=== PATIENT | female | born 1950 | race Caucasian/White ===

== ENCOUNTER 2016-08-15 19:47 | Observation (INO) | payer MEDICARE ==
[~2016-08-15] VITALS: Ht 172.7 cm; Wt 86.7 kg
[~2016-08-15 19:47] MED LIST: BECL8.7A6 IH; CITA10SO PO; DILT240C87 PO; HYDR12.5 PO; OXYB5TAB10 PO; TRAZ-118 PO
[2016-08-15 19:57] VITALS: BP 160/76; PULSE 89; RESP 32; O2SAT 88
[2016-08-15 20:00] VITALS: O2SAT 94
[2016-08-15] MEDS ORDERED: MeTOProlol 1 mg/mL 5 mL Inj IVPUSH STA (20:05)
--- NOTE | 2016-08-15 20:05 | ED.REPORT ---
HPI-Chest Pain 40 and Over Date of Service Aug 15, 2016 ED Provider: Corrine Larson MD The patient is a 66 year old female w/ a hx of HTN who presents to the ED via EMS accompanied by her due to chest pain onset 1.5 hrs ago. She was sitting, talking on the telephone, and began to feel intense chest pressure and SOB. She took 2 baby aspirin which did not help her symptoms. When medics arrived, she rated her pain at 20/10. The pain waxed and waned and radiated into her back. The pain was significantly reduced to a 5/10 with nitroglycerin. Associated symptoms include fatigue, chills and slight diaphoresis. Her fatigue has been worse recently. Nursing Notes Stated Complaint: CHEST PAIN Chief Complaint: Chest Pain Nursing Notes Reviewed: Yes Allergies: Coded Allergies: codeine (Verified Allergy, Severe, hives, "wired", itching, blotching, ) diphenhydramine (Verified Allergy, Severe, hives, itching, blotching, "wired", 08/15/16) meperidine (Verified Allergy, Severe, hallucinate, hives, itching, 08/15/16 ) morphine (Verified Allergy, Severe, hives, itching, "wired", hallucinations, 08/15/16) Scheduled Beclomethasone Dipropionate (Qvar) 8.7 Gm Aer.w.adap 40 MCG IH BID Citalopram Oral Soln (Citalopram Oral Soln) 10 Mg/5 Ml Solution 5 MG PO DAILY Diltiazem ER (Diltiazem ER) 240 Mg Capsule.er 240 MG PO DAILY Hydrochlorothiazide (Hydrochlorothiazide) 12.5 Mg Capsule 12.5 MG PO DAILY Oxybutynin Chloride (Oxybutynin Chloride) 5 Mg Tablet 5 MG PO DAILY Trazodone (Trazodone) 100 Mg Tablet 100 MG PO HS General Time Seen by MD: 20:05 Chief Complaint Chest pain Hx Obtained From: Patient Arrived By: Ambulance Sudden in Onset?: Yes Onset Occurred: 1 - 4 hours ago Symptom Duration: Since onset Location: : Chest left Quality: Heaviness, Painful, Pressure Radiation: : Back Migration/Movement: Reports: Chest to back Severity: Current: Pain level 3 out of 10 Severity: Maximum: Pain level 10 out of 10 Recent Healthcare: No recent doctor visit, No recent hospitalization Similar Sx Previous: No Past Medical History Past Medical History Reports: Hypertension Reports: Depression Past Surgical History Reports: Appendectomy, Cholecystectomy, Tonsillectomy Smoking History Former Smoker Social History Alcohol Use: "Social" Other Social History: Poor social support, , Local resident Ambulatory Status Independent Review of Systems Constitutional: Reports: Chills, Fatigue Respiratory: Reports: Shortness of breath Cardiovascular: Reports: Chest pain Skin: Reports Diaphoresis Complete sys rev & neg: except as marked. Physical Exam Initial Vital Signs Vital Signs (First) Date Time Temp Pulse Resp B/P Pulse Ox O2 Delivery O2 Flow Rate FiO2 08/15/16 19:57 37.0 89 32 160/76 88 Room Air 08/15/16 20:00 3 Initial VS: Reviewed, Vital signs abnormal Head / Eyes: Atraumatic, Normocephalic, PERRL ENT: Mucous membranes moist, Conjunctiva normal Back: No CVA tenderness Extremities: Vascular intact, Neuro intact, No swelling, No tenderness Skin: Warm, Dry Neurologic: Alert, Oriented Psychiatric: Mood/affect normal, Behavior normal General/Constitutional: Awake, Alert, Cooperative Rales / Rhonchi: Positive: Rales bilateral bases Cardiovascular: Heart rate NL, Regular rhythm, Heart sounds NL Abdomen: Atraumatic, Soft, Non-tender Interpretation & Diagnostics Lab Results Interpretation Result Diagram: 08/15/16200408/15/162004 Test 08/15/16 20:05 08/15/16 21:07 White Blood Count 9.0th/mm3 (3.8-10.1) Red Blood Count 5.03mil/mm3 (3.90-5.20) Hemoglobin 14.9g/dL (12.0-15.6) Hematocrit 46.6% (35.0-46.0) Mean Corpuscular Volume 92.6fL (81-100) Mean Corpuscular Hemoglobin 29.6pg (27.0-35.0) Mean Corpuscular Hemoglobin Concent 32.0% (32.0-37.0) Red Cell Distribution Width 15.3% (12.3-15.4) Platelet Count 181bil/L (150-400) Neutrophils (%) (Auto) 58.9% (40-74) Lymphocytes (%) (Auto) 31.8% (14-46) Monocytes (%) (Auto) 7.9% (4-12) Eosinophils (%) (Auto) 1.1% (0-5) Basophils (%) (Auto) 0.2% (0-3) Sodium Level 141mEq/L (134-144) Potassium Level 4.0mEq/L (3.5-5.2) Chloride Level 101mEq/L (97-108) Carbon Dioxide Level 25mmol/L (18-29) Blood Urea Nitrogen 14mg/dL (8-27) Creatinine 0.76mg/dL (0.57-1.00) Estimat Glomerular Filtration Rate 109mL/min (>59) Glucose Level 134mg/dL (60-99) Calcium Level 9.8mg/dL (8.5-10.1) Magnesium Level 1.7mg/dL (1.6-2.6) Total Bilirubin 0.2mg/dL (0.0-1.2) Aspartate Amino Transf (AST/SGOT) 19U/L (0-50) Alanine Aminotransferase (ALT/SGPT) 16U/L (0-32) Alkaline Phosphatase 121U/L (25-165) Troponin T < 0.010ug/L (0.0-0.011) Pro-B-Type Natriuretic Peptide 233.4pg/mL (0-301) Total Protein 7.0g/dL (6.4-8.4) Albumin 4.3g/dL (3.4-5.0) Hold Urine Received (Received) ECG Interpretation ECG Interpretation: no acute ST wave changes Time: 19:59 Interpreted by: ED physician Normal ECG Interpretation: Normal sinus rhythm (86), Normal axis X-Ray Chest Interpretation Chest Xray Interpretation: IMPRESSION: No acute cardiopulmonary disease process. Dictated by: Fauzia Oscar MD, PhD on 08/15/2016 at 20:17 Approved by: Fauzia Oscar MD, PhD on 08/15/2016 at 20:18 View: Portable Interpretation / Wet Read by: Interpret - Radiologist Re-Eval/Medical Decision Med Decision/Clinical Course The patient's story is very concerning for acute coronary syndrome. Initial troponin and EKG are negative. Her symptoms started only 2 hours ago and she will need to be ruled out. Additional differential diagnoses considered were pneumonia, aortic dissection, congestive heart failure, and pulmonary embolus. Time of Eval: 21:55 Re-Evaluation/Progress Note: Pt rechecked. Informed pt of need for admission. Pt understands and agrees with plan. All questions addressed. Consultation : Referral / Consult Name: Dajuan Petersen MD Call Returned at: 22:17 Injection Molder: Agrees with eval, Agrees with plan Note: Case discussed. Dr. Petersen accepts admit. Counseled Regarding: Diagnosis, Lab results, Need for admission Discharge & Departure Primary Impression: Chest pain Chest pain type: unspecified Qualified Code: R07.9 - Chest pain, unspecified Disposition: ADMITTED TO HOSPITAL Discharge Condition All VS Reviewed: Yes Condition: Stable Referrals: Jose Maria Claros MD (PCP) [employer] Attestation Portion of this note were transcribed by Beverly Orosco. I, Dr. Larson, personally performed the history, physical exam, and medical decision-making: I reviewed and confirmed the accuracy for the information in the transcribed note. Signed by: sahil Perez, 08/15/16 2100 copies to: Jose Maria Claros MD, Jena M MD Aug 15, 2016 20:05 Beverly Orosco Aug 15, 2016 20:17
[2016-08-15] MEDS ORDERED: Nitroglycerin 2% 1 Gm Ointment TOPICAL ONE (20:20)
--- NOTE | 2016-08-15 20:20 | DRSVH ---
PROCEDURE: X-RAY CHEST ONE VIEW, PORTABLE ([id number]) INDICATIONS: chest pain TECHNIQUE: One view of the chest was acquired. COMPARISON: [facility], , XR CHEST 2VW, 06/05/2015, 11:09. FINDINGS: Surgical changes and devices: Cholecystectomy clips Lungs and pleura: No pleural effusions or pneumothorax. Lungs are clear of acute opacities. Right b asilar parenchymal scarring stable compared to prior examinations. Mediastinum: Mediastinal contours appear normal. Heart size is normal. Bones and chest wall: No suspicious bony lesions. Overlying soft tissues appear unremarkable. IMPRESSION: No acute cardiopulmonary disease process. Dictated by: Fauzia Oscar MD, PhD on 08/15/2016 at 20:17 Approved by: Fauzia Oscar MD, PhD on 08/15/2016 at 20:18
[2016-08-15] MEDS ORDERED: HYDROmorphone 0.5 mg/0.5 mL iSecure Syringe IVPUSH ONE ×2 (20:35→22:50)
[2016-08-15] MEDS ORDERED: LidocaineVisc 2%:Antacid 1:1 10 mL Syringe PO ONE (20:35)
[2016-08-15 20:37] LABS: BASOPHILS % (AUTO) 0.2 % (0-3); EOSINOPHILS % (AUTO) 1.1 % (0-5); MONOCYTES % (AUTO) 7.9 % (4-12); Mean Corpuscular Hemoglobin 29.6 pg (27.0-35.0); Mean Corpuscular Volume 92.6 fL (81-100); NEUTROPHILS % (AUTO) 58.9 % (40-74); Platelet Count 181 bil/L (150-400)
[2016-08-15 20:59] LABS: TROPONIN T < 0.010 ug/L (0.0-0.011)
[2016-08-15 21:00] LABS: Magnesium 1.7 mg/dL (1.6-2.6)
[2016-08-15] MEDS ORDERED: Ondansetron 2 mg/mL 2 mL Inj IVPUSH ONE (21:45)
[2016-08-15 22:03] VITALS: BP 150/61; PULSE 58; RESP 21; O2SAT 97
[2016-08-15] MEDS ORDERED: Atropine 1 mg/10 mL (Code) Syringe IVPUSH PRN (22:30)
[2016-08-15] MEDS ORDERED: Senna-Docusate 8.6-50 mg Tablet PO PRN (22:30)
[2016-08-15] MEDS ORDERED: Polyethylene Glycol (PEG) 17 Gm Powder PO PRN (22:30)
[2016-08-15] MEDS ORDERED: Alum-Mag Hydrox-Simeth 30 mL Suspension PO PRN (22:30)
[2016-08-15] MEDS ORDERED: Ondansetron 2 mg/mL 2 mL Inj IVPUSH PRN (22:30)
[2016-08-15 23:28] VITALS: BP 135/70; PULSE 56; RESP 18; O2SAT 96
[2016-08-16] VITALS (10 sets, daily range): BP systolic 92–152; BP diastolic 54–73; PULSE 55–71; RESP 18; O2SAT 90–95
--- NOTE | 2016-08-16 | PCM.HPMED ---
Subjective Date of Service Aug 15, 2016 Primary Provider: Admitting Physician: Dajuan Petersen MD Primary Care Physician: Jose Maria Claros MD Attending Physician: Dajuan Petersen MD Admit Status: From the Emergency Department Chief Complaint: Substernal chest pain History of Present Illness: Mrs. Melanie Reid is a 66 year old woman with history of atrial fibrillation, likely paroxysmal, not on rate control or anticoagulation, and history of severe PNA requiring intubation, that presented to [facility] via EMS for an acute onset substernal, severe, chest pressure with radiation to her back. She was admitted for evaluation for acute coronary syndrome. Hospital day one. Mrs. Reid states that her pressure began at approx 1830 this evening at dinner, no inciting events recalled. No history of similar. She initially rated the pain at "20/10," seem to have worsened on its own without any triggers, and she reports she took two low-dose aspirin which did not provide any relief. Associated symptoms include nausea, and the radiation of pain to her mid back. Much to her dismay, her neighbor called EMS, and brought her into the hospital. At time of the event, and currently, she denies any fever, chills, vomiting, abdominal pain, paresthesias in extremities, jaw pain, shortness of breath. She does note a day prior to the onset of symptoms, she states she felt slightly unwell, with subjective fever and chills. She notes a recent development of headache since application of the nitroglycerin. She denies any history of similar, and no history of any chest pain or cardiac diagnoses that have required ongoing treatment. She does note that she was hospitalized for pneumonia last year at [facility] in [place], and there, she was found to have atrial fibrillation. She states that she no longer has atrial fibrillation , and does not take any medications, including rate control or anticoagulants. She states that she felt well until this evening at onset of symptoms, and is currently quite irritated that she has to be in the hospital. In the ED room, she stated her pain was beginning to recur, rated approximately 3/10. She noted that her symptoms improved with sitting upright and leaning forward. Prior to arrival in the ED, blood pressure was reported to be approximately 220 systolic. In the ED, temperature 37.0, pulse 89, respiratory rate 32, blood pressure 160/76, pulse ox 88% on room air; follow-up vitals approximately 2 hours later revealed pulse of 58, respiratory rate 21, blood pressure 150/61, 97 % on nasal cannula 3 L. Initial lab work showed WBC 9.0, hemoglobin 14.9, platelets 181; creatinine 0.76, glucose 134, troponin less than 0.010, pro BNP 233; chest x-ray did not reveal any acute cardiopulmonary disease processes, including effusions or pneumothorax. EKG revealed normal sinus rhythm, without any acute ST/T changes. She was [place] [facility]. Review of Systems: Complete ROS obtained; pertinent positives and negatives as noted in HPI Allergies Coded Allergies: codeine (Verified Allergy, Severe, hives, "wired", itching, blotching, ) diphenhydramine (Verified Allergy, Severe, hives, itching, blotching, "wired", 08/15/16) meperidine (Verified Allergy, Severe, hallucinate, hives, itching, 08/15/16 ) morphine (Verified Allergy, Severe, hives, itching, "wired", hallucinations, 08/15/16) Home Medications Patient reports: Trazodone nightly Oxybutynin daily Denies any cardiac medications ED documentation: Beclomethasone Dipropionate (Qvar) 8.7 Gm Aer.w.adap 40 MCG IH BID Citalopram Oral Soln (Citalopram Oral Soln) 10 Mg/5 Ml Solution 5 MG PO DAILY Diltiazem ER (Diltiazem ER) 240 Mg Capsule.er 240 MG PO DAILY Hydrochlorothiazide (Hydrochlorothiazide) 12.5 Mg Capsule 12.5 MG PO DAILY Oxybutynin Chloride (Oxybutynin Chloride) 5 Mg Tablet 5 MG PO DAILY Trazodone (Trazodone) 100 Mg Tablet 100 MG PO HS PMH Atrial fibrillation, paroxysmal, no anticoagulation; patient reports she converted into NSR PNA s/p intubation Non-Hodgkin's lymphoma stage I; in remission Insomnia secondary to racing thoughts Henley's esophagus Diverticulosis Anxiety/depression Hypertension PCP: [facility] Surgical History Appy Cholecystectomy Tonsillectomy EGD/Colonoscopy 2013 Family History Denies any family h/o early cardiac or disease; does report parents had CAD, but did not experience complications or OK until elderly ages Social History Occupation: retired; fmr endo RN at [employer] Hx Alcohol Use: Yes (twice a year) Hx Substance Use: No Smoking Status: Current Every Day Smoker (patient not straightforward when responding to this question; but appears to smoke daily, but now "former" secondary to hospitalization), Former Smoker (Does report ongoing use) Living Arrangement: with Family ([employer]; local) Exam Vital Signs Vital Sign - Last Date Time Temp Pulse Resp B/P Pulse Ox O2 Delivery O2 Flow Rate FiO2 08/15/16 22:03 58 21 150/61 97 Nasal Cannula 3 08/15/16 19:57 37.0 Exam General: Alert oriented 3; no acute distress but notably irritated Neck: Full range of motion chin to chest without pain HEENT: Atraumatic, EOMI, sclera anicteric, mucous membranes moist Cardiac: Regular rate and rhythm, rate approximately 60 at time of exam, no murmurs appreciated Respiratory: Adequate airflow all golden, bibasilar crackles appreciated Abdomen: Soft, nontender, nondistended Chest: Pain not reproducible with palpation; no obvious trauma noted of chest or back MSK: Ability to move for the 4 extremities against gravity Extremities: No edema appreciated in bilateral upper or lower extremities Skin: Warm and dry Neuro: Cranial nerves II through XII grossly intact, facial expression symmetric , speech without slurring Psych: Appropriate responses to questioning; notably irritated at time of examination Lab and Diagnostics Result Diagram: 08/15/16200408/15/162004 Assessment & Plan Mrs. Melanie Reid is a 66 year old woman with history of atrial fibrillation, likely paroxysmal, not on rate control or anticoagulation, and history of severe PNA requiring intubation, that presented to [facility] via EMS for an acute onset substernal, severe, chest pressure with radiation to her back. She was admitted for evaluation for acute coronary syndrome. Hospital day one. Chest pain, acute, present on admission. Active - On admit: Troponin negative, EKG did not reveal any acute ST/T changes - DDx: Pancreatitis, pericarditis, OK, costochondritis, PTX, GERD, angina - Continue O2, pain relief, nitroglycerin, aspirin - EKG prn chest pain - Dilaudid 0.5 mg IV prn chest pain; patient has allergy to morphine - Trend troponin - Echo - Stress test, treadmill - NPO 4 hours prior to study - Based on results: Initiation of ASA, beta annette, ACEi, statin therapies - AM labs: cbc, bmp, thyroid, Mg PO4; lipase added to admit labs Insomnia, chronic. Presumed stable - Continue home trazodone Bladder spasms, chronic. Presumed stable - Continue home oxybutynin History of atrial fibrillation, likely paroxysmal, chronic. Presumed stable - Patient reports history, not on rate control or anticoagulation - CHADS VASc at time of admission: 1; +HTN; low risk PRN: Bowel/fever/pain/nausea DVT: Hep q8 Diet: Heart healthy; exc NPO x4h prior to cardiac studies GI: Not indicated Code: FULL CODE Patient status: Due to severity of presenting symptoms, likely course of events , and expected course of care, anticipated length of stay is less than 2 midnights Pain Evaluation: Adequate Pain Control GI Prophylaxis: Not indicated VTE Prophylaxis: Sub-Q Heparin (Unfractionated) Resuscitation Status: CPR: Attempt Resuscitation Attending Statement The patient was seen and examined together with Dr. Henley on 08/15 and I agree with the history, exam and plan as outlined in the note above. Jannet Henley DO Aug 15, 2016 23:09 Dajuan Petersen MD Aug 16, 2016 02:00
--- NOTE | 2016-08-16 00:05 | NUR ---
Admission Note Pt [place] [facility] on [place] at 2325, alert and orientedx3, states chest pain or pressure and nausea resolved, c/o mild headache, denies SOB/cough/fever/chills/dizziness,vertigo. BP 135/70 HR 56, RR18, SPO2 97% on O2 3l per nc. Crackles bilateral 2/3 down lung field anteriorly ,posteriorly and laterally. Tele applied, SR 56 per wind tunnel technician, distant S1 S2. Abdomen soft,nontender, BT slightly hypoactive, no edema bilateral legs. Pt informed NPO after MN,no caffeine for stress test today 08/16/2016. Call light oriented to pt, care ongoing.
[2016-08-16 00:12] LABS: APPEARANCE,URINE CLEAR (CLEAR,HAZY); COLOR,URINE YELLOW (YELLOW); OCCULT BLOOD,URINE NEGATIVE (NEGATIVE); UROBILINOGEN,URINE NORMAL (NORMAL)
[2016-08-16] MEDS: Heparin 5,000 Unit/mL Inj SUBQ SCH ×2 (00:18→08:21)
[2016-08-16] MEDS: 0.9% Sodium Chloride 1,000 ML IV SCH ×2 (00:18→10:56)
[2016-08-16] MEDS: Sodium Chloride LOK Flush 10 mL Syringe IVFLUSH SCH ×3 (00:30→16:30)
[2016-08-16 02:34] LABS: Mean Corpuscular Hemoglobin 29.9 pg (27.0-35.0); Mean Corpuscular Volume 93.5 fL (81-100)
[2016-08-16 03:06] LABS: Magnesium 1.8 mg/dL (1.6-2.6); Phosphorus 4.9 mg/dL (2.5-4.9)
[2016-08-16] MEDS: HYDROmorphone 0.5 mg/0.5 mL iSecure Syringe IVPUSH PRN ×2 (03:21→08:25)
[2016-08-16] MEDS ORDERED: LORazepam 1 mg Tablet PO PRN (08:35)
--- NOTE | 2016-08-16 09:10 | NUR ---
Off unit Pt off unit to MIBI stress test, Rover notified. Addendum: 08/16/16 at 1226 by NAKUL BOOTH RN Pt back on unit at 1200, Rover notified.
--- NOTE | 2016-08-16 12:48 | NUR ---
Case Management: SLOAN and Medicare D paperwork delivered and explained to pt. @ 6603. Original placed in chart. Copy left at bedside. Colleen John RN
--- NOTE | 2016-08-16 14:42 | NUR ---
Social Work-initial assessment/ Readiness for Discharge: Data:See initial assessment. Pt is a 66 y/o female who was admitted on 08/15/16 for chest pain per H&P. Per morning rounds pt will possibly discharge home later this evening pending results of stress test. Pt's insurance is [employer] and [employer] and PCP is Jose Maria Claros MD. EMR Reviewed. Pt's readmission score is not available. SW met with pt at bedside to discuss discharge planning, SW role explained. Pt is alert and oriented x3. Pt resides at home with in a single level home with two steps to enter where pt remains independent with basic ADLs. Pt uses no DME at baseline and drives POV. Pt has no HH or SNF history. Pt states she has completed DPOA/ advanced directive and SW requested a copy for the hospital. Pt has no long term care administrator care or VA benefits. Pt's to provide transport home at discharge. SW provided phone number and plan on white board in room. No needs assessed. SW will continue to follow. Assessment:Pt who resides at home with and is independent at baseline. Plan:Pt to likely discharge home via POV when medically stable with no needs. SW will continue to follow. KUSH Robertson Addendum: 08/16/16 at 1448 by CRISTHIAN SPRINGER SS Amended: Links added.
--- NOTE | 2016-08-16 14:43 | DRSVH ---
PROCEDURE: 1 DAY PHARMACOLOGICAL STRESS TEST Rest and pharmacological stress myocardial perfusion SPECT with gated imaging and ejection fraction RADIOPHARMACEUTICAL: 8.9 mCi Tc-99m tetrafosmin IV at rest and 24.8 Tc-99m tetrafosmin IV at peak eff ect of pharmacological stress. A [id number] was performed. INDICATIONS: 66 year-old female with history of atrial fibrillation and family history of coronary ar gabby disease presenting for evaluation of chest pain. TECHNIQUE: Radiopharmaceutical was injected at peak stress test, and also at rest. SPECT images wer e obtained. SPECT myocardial perfusion images were displayed in short axis, horizontal long axis, an d vertical long axis views. Gated images were reviewed using [employer] software. COMPARISON: None. CARDIAC STRESS: An exercise stress test utilizing standard Tr protocol was initiated. Target heart rate was not a chieved due to cramping in both legs. A pharmacologic stress test was performed under the supervisio n of an attending staff, using an infusion of Lexiscan. Hemodynamic data: There is normal blood pressure and heart rate response to pharmacologic stress. Symptoms: The patient denied anginal chest pain. Patient reported nausea following Lexiscan injecti on. Aminophylline: 100 mg IV EKG: No diagnostic changes of ischemia. Occasional PACs following Lexiscan injection. FINDINGS: Raw data: There is good myocardial uptake of radiotracer. No significant motion artifacts. Left ventricle function: Gated images demonstrate normal left ventricular wall thickening. No segme ntal wall motion abnormalities. Left ventricle resting end diastolic volume is 75 mL. Left ventricl e stress ejection fraction is 73%; normal range is above 45%. Myocardial perfusion: There is normal distribution of activity in the right and left ventricular italia cardium. No fixed or reversible perfusion defects. IMPRESSION: 1. Normal myocardial perfusion images without evidence of ischemia or infarct. 2. Normal left ventricular ejection fraction without segmental wall motion abnormalities. 3. No diagnostic EKG changes of ischemia following pharmacologic stress. Patient was unable to achi frances target heart rate during exercise stress due to leg cramping. PQRS ATTESTATIONS: Measure 322 - Is this imaging test primarily performed on a low-risk surgery patient for preoperative evaluation within 30 days preceding their low-risk non-cardiac surgery? Low-risk surgery is defined as cardiac or myocardial infarction less than 1%, including (but not limited to) endoscopic pr ocedures, superficial procedures, cataract surgery, and excisional breast surgery: Answer: No Measure 323 - Is this imaging test performed primarily for the monitoring of an asymptomatic patient who had percutaneous coronary intervention on the visit date or within 2 years of the visit date? An swer: No Measure 324 - Is this imaging test performed primarily for the initial detection and risk assessment on an asymptomatic, low coronary heart disease patient? Low CHD risk definition = clinicians should consider the maximum number of available patient factors used to estimate risk based on [place] (A TP III criteria), typically age, gender, diabetes, smoking status, and use of blood pressure medicati on, and integrate age appropriate estimates for missing elements, such as LDL or standard blood press ure. Answer: No Dictated by: Tarik Atkinson M.D. on 08/16/2016 at 14:35 Approved by: Tarik Atkinson M.D. on 08/16/2016 at 14:42
--- NOTE | 2016-08-16 16:46 | DRSVH ---
[facility] [address] [place] [address] Echocardiogram Report Name: DEMARCUS FRASER JStudy Date: 08/16/2016 Height: 68 in Hospital Exam Location: [facility] Weight: 191 lb Gender: Female BSA: 2.0 m2 : 1950 Age: 66 yrs BP: 112/66 mmHg Reason For Study: CHEST PAIN Ordering Physician: Performed By: Kasey Lim Referring Physician: Jose Maria Claros Interpretation Summary The ejection fraction is estimated to be 60-65%. There is no significant valvular heart disease. Procedure: A two-dimensional transthoracic echocardiogram with color flow and Doppler was performed. The study quality was technically adequate. There is no prior echocardiogram noted for this patient. The patient was in normal sinus rhythm during the exam. Left Ventricle: The left ventricle is normal in size, wall thickness, and systolic function without any focal wall motion abnormalities. The ejection fraction is estimated to be 60-65%. Spectral Doppler of the mitral valve is reversed, with an E/A wave ratio < 1.0. Right Ventricle: The right ventricle is normal in size and function. Atria: Both atria are normal in size. There is no Doppler evidence for an atrial septal defect. Mitral Valve: The mitral valve leaflets appear mildly thickened, but open well. There is no mitral regurgitation noted. Aortic Valve: The aortic valve is trileaflet. There is mild aortic valve sclerosis. The aortic valve opens well. No aortic regurgitation is present. Tricuspid Valve: The tricuspid valve leaflets are thin and pliable. There is mild to moderate tricuspid regurgitation. The right ventricular systolic pressure is estimated at 27 mmHg assuming a right atrial pressure of 3 mm Hg. Pulmonic Valve: The pulmonic valve is not well seen, but is grossly normal. There is a trace or physiologic amount of pulmonic regurgitation. Great Vessels: The aortic root is normal size. The dimensions of the ascending aorta are normal. The pulmonary artery is normal size. The IVC is of normal diameter and collapses greater than 50% with a sniff. This suggests a low right atrial pressure of 3 mm Hg. Pericardium/ Pleura There is no pericardial effusion. There is no pleural effusion. MMode/2D Measurements & Calculations LVIDd: 4.8 cm RA long axis LVOT diam: 2.0 cm LVIDs: 3.0 cm LA A2 area: 17.4 cm AoV Opening FS: 36.8 % LA A4 area: 22.1 cm RA area EPSS: 0.54 cm LA length (vol) Ao root diam IVSd: 0.97 cm : 19.4 cm LVPWd: 1.1 cm LA vol: 59.7 ml RA vol asc Aorta Diam LA vol index : 62.0 ml RA Ao Arch Diam (Prox : 30.9 mm2 Trans): 2.8 cm IVC diam: 1.4 cm LV gardner. diameter/BSA LV sys. diameter/BSA RVD2 (mid) (cm/m^2): 2.4 (cm/m^2): 1.5 : 3.2 cm Doppler Measurements & Calculations Ao V2 max MV E max rahul MV E/A: 0.80 TR max rahul : 152.2 cm/sec : 98.2 cm/sec Med Peak E' Rahul : 243.2 cm/sec Ao max P.3 mmHg MV A max rahul TR max PG Ao mean P.7 mmHg : 122.0 cm/sec E/E' med: 14.0 : 23.7 mmHg LVOT Max Rahul MV P1/2t: 74.7 msec Lat Peak E' Rahul PA V2 max : 103.7 cm/sec : 98.2 cm/sec E/E' lat: 9.3 PA mean PG MAMADOU(I,D): 2.3 cm E/e' average sev ratio: 0.70 PA Accel Time Pulm A Revs Dur : 0.12 sec MV A dur : 0.14 sec MV P1/2t max rahul Ao V2 mean LV V1 max PG PA V2 mean : 104.2 cm/sec : 67.0 cm/sec Ao V2 VTI: 33.1 cm LV V1 VTI MVA(P1/2t): 2.9 cm2 : 23.3 cm MAMADOU(V,D): 2.2 cm2 MAMADOU indexed to BSA Pulm A Revs Dur - MV A (cm^2/m^2): 1.2 Dur: -0.01 msec Electronically signed by: Dung Ashley on Reading Physician:08/16/2016 04:46 PM
[2016-08-16] MEDS ORDERED: OMEP10CA4 PO (17:26)
--- NOTE | 2016-08-16 17:26 | PCM.DIMED ---
Discharge Instructions Date of Service Aug 16, 2016 Dates of Hospitalization Aug 15, 2016 at 22:44 Discharge Diagnosis Discharge Diagnosis # Chest pain, acute, present on admission. RESOLVED ,ACS RULLED OUT # Insomnia, chronic. Presumed stable # Bladder spasms, chronic. Presumed stable # History of atrial fibrillation, likely paroxysmal, chronic. Presumed stable # sinus bradycardia ,asymptomatic Test Results Unremarkable echocardiogram Negative stress test Diet Low fat, Low Sodium Activity Limited until seen by PCP Call your provider Fever or Chills, Shortness of breath, Bleeding, Chest pain, Vomitting, Excessive diarrhea, Weakness (unilateral) Patient Instructions You were hospitalized to due to chest pain. Workup is negative for heart attack. Pain most likely due to acid reflux. Please take omeprazole as prescribed. Please follow-up with PCP in 1 week. Follow-up Provider: Jose Maria Claros MD Follow-up with PCP in: 1 week Armond Barnett MD Aug 16, 2016 17:26
--- NOTE | 2016-08-16 18:42 | NUR ---
DISCHARGE Pt discharged at 1800, amb off unit accompanied by and AREA SUPERVISOR. Vital signs stable, A&O, denies any pain and in no apparent distress. IV dc'd intact, all belongings returned. All instructions for diet, activity, medications, prescriptions and follow up reviewed with pt who reports understanding.
--- NOTE | 2016-08-16 20:07 | PCM.DC.MED ---
Discharge Summary Date of Service Aug 16, 2016 Dates of Hospitalization Date of Hospital Admission Aug 15, 2016 at 22:44 Date of Discharge: Aug 16, 2016 Providers: Admitting Physician: Dajuan Petersen MD Primary Care Physician: Jose Maria Claros MD Attending Physician: Dajuan Petersen MD Diagnosis at Time of Discharge Diagnosis at Time of Discharge # Chest pain, acute, present on admission. RESOLVED ,ACS RULLED OUT # Insomnia, chronic. Presumed stable # Bladder spasms, chronic. Presumed stable # History of atrial fibrillation, likely paroxysmal, chronic. Presumed stable # sinus bradycardia ,asymptomatic Procedures Cardiac Echo Impression Interpretation Summary The ejection fraction is estimated to be 60-65%. There is no significant valvular heart disease. Other Diagnostics stress test PROCEDURE: 1 DAY PHARMACOLOGICAL STRESS TEST FINDINGS: Raw data: There is good myocardial uptake of radiotracer. No significant motion artifacts. Left ventricle function: Gated images demonstrate normal left ventricular wall thickening. No segmental wall motion abnormalities. Left ventricle resting end diastolic volume is 75 mL. Left ventricle stress ejection fraction is 73%; normal range is above 45%. Myocardial perfusion: There is normal distribution of activity in the right and left ventricular myocardium. No fixed or reversible perfusion defects. IMPRESSION: 1. Normal myocardial perfusion images without evidence of ischemia or infarct. 2. Normal left ventricular ejection fraction without segmental wall motion abnormalities. 3. No diagnostic EKG changes of ischemia following pharmacologic stress. Patient was unable to achieve target heart rate during exercise stress due to leg cramping. Brief History Mrs. Melanie Reid is a 66 year old woman with history of atrial fibrillation, likely paroxysmal, not on rate control or anticoagulation, and history of severe PNA requiring intubation, that presented to [facility] via EMS for an acute onset substernal, severe, chest pressure with radiation to her back. She was admitted for evaluation for acute coronary syndrome. Hospital day one. Mrs. Reid states that her pressure began at approx 1830 this evening at dinner, no inciting events recalled. No history of similar. She initially rated the pain at "20/10," seem to have worsened on its own without any triggers, and she reports she took two low-dose aspirin which did not provide any relief. Associated symptoms include nausea, and the radiation of pain to her mid back. Much to her dismay, her neighbor called EMS, and brought her into the hospital. At time of the event, and currently, she denies any fever, chills, vomiting, abdominal pain, paresthesias in extremities, jaw pain, shortness of breath. She does note a day prior to the onset of symptoms, she states she felt slightly unwell, with subjective fever and chills. She notes a recent development of headache since application of the nitroglycerin. She denies any history of similar, and no history of any chest pain or cardiac diagnoses that have required ongoing treatment. She does note that she was hospitalized for pneumonia last year at [facility] in [place], and there, she was found to have atrial fibrillation. She states that she no longer has atrial fibrillation , and does not take any medications, including rate control or anticoagulants. She states that she felt well until this evening at onset of symptoms, and is currently quite irritated that she has to be in the hospital. In the ED room, she stated her pain was beginning to recur, rated approximately 3/10. She noted that her symptoms improved with sitting upright and leaning forward. Prior to arrival in the ED, blood pressure was reported to be approximately 220 systolic. In the ED, temperature 37.0, pulse 89, respiratory rate 32, blood pressure 160/76, pulse ox 88% on room air; follow-up vitals approximately 2 hours later revealed pulse of 58, respiratory rate 21, blood pressure 150/61, 97 % on nasal cannula 3 L. Initial lab work showed WBC 9.0, hemoglobin 14.9, platelets 181; creatinine 0.76, glucose 134, troponin less than 0.010, pro BNP 233; chest x-ray did not reveal any acute cardiopulmonary disease processes, including effusions or pneumothorax. EKG revealed normal sinus rhythm, without any acute ST/T changes. She was transferred to [facility] in stable condition. Hospital Course Mrs. Melanie Reid is a 66 year old woman with history of atrial fibrillation, likely paroxysmal, not on rate control or anticoagulation, and history of severe PNA requiring intubation, that presented to [facility] via EMS for an acute onset substernal, severe, chest pressure with radiation to her back. She was admitted for evaluation for acute coronary syndrome. Hospital day one. # Chest pain ACS ruled out, acute, present on admission. resolved - On admit: Troponin negative, EKG did not reveal any acute ST/T changes - likely due to GERD ,pericarditis unlikely given ESR 6, discharged on omeperazole po bid - Continue O2, pain relief, nitroglycerin, aspirin - Echo unremarkable - Stress test negative -d-dimer borderline elevated # Asymptomatic sinus bradycardia -HR in 50's,patient states her HR ranges 40-50's and never have any symptoms like syncope/presyncope -TSH 2.5 # Insomnia, chronic. Presumed stable - Continue home trazodone # Bladder spasms, chronic. Presumed stable - Continue home oxybutynin # History of atrial fibrillation, likely paroxysmal, chronic. Presumed stable - Patient reports history, not on rate control or anticoagulation - CHADS VASc at time of admission: 1; +HTN; low risk -advised to follow up with PCp and decide on AC discharged home condition on discharge stable Exam Vital Signs (Last) Date Time Temp Pulse Resp B/P Pulse Ox O2 Delivery O2 Flow Rate FiO2 08/16/16 17:18 36.7 55 18 152/73 94 Room Air 08/15/16 23:46 3 Exam General: Alert oriented 3; no acute distress but notably irritated Neck: Full range of motion chin to chest without pain HEENT: Atraumatic, EOMI, sclera anicteric, mucous membranes moist Cardiac: Regular rate and rhythm, rate approximately 60 at time of exam, GI/ systolic murmur appreciated at LLSB Respiratory: Adequate airflow all golden, bibasilar crackles appreciated Abdomen: Soft, nontender, nondistended Chest: Pain not reproducible with palpation; no obvious trauma noted of chest or back MSK: Ability to move for the 4 extremities against gravity Extremities: No edema appreciated in bilateral upper or lower extremities Skin: Warm and dry Neuro: Cranial nerves II through XII grossly intact, facial expression symmetric , speech without slurring Psych: Appropriate responses to questioning; notably irritated at time of examination Test 08/15/16 20:05 08/15/16 21:07 08/16/16 02:15 08/16/16 08:30 Neutrophils (%) (Auto) 58.9% (40-74) Lymphocytes (%) (Auto) 31.8% (14-46) Monocytes (%) (Auto) 7.9% (4-12) Eosinophils (%) (Auto) 1.1% (0-5) Basophils (%) (Auto) 0.2% (0-3) Total Bilirubin 0.2mg/dL (0.0-1.2) Aspartate Amino Transf (AST/SGOT) 19U/L (0-50) Alanine Aminotransferase (ALT/SGPT) 16U/L (0-32) Alkaline Phosphatase 121U/L (25-165) Pro-B-Type Natriuretic Peptide 233.4pg/mL (0-301) Total Protein 7.0g/dL (6.4-8.4) Albumin 4.3g/dL (3.4-5.0) Lipase 23U/L (13-60) Urine Color Yellow (YELLOW) Urine Appearance Clear (CLEAR,HAZY) Urine pH 6.0 (5.0-8.0) Urine Specific [place] 1.020 (1.003-1.035) Urine Protein Negativemg/dL (NEG,TRACE) Urine Glucose (UA) Negativemg/dL (NEGATIVE) Urine Ketones Tracemg/dL (NEGATIVE) Urine Occult Blood Negative (NEGATIVE) Urine Nitrite Negative (NEGATIVE) Urine Bilirubin Negative (NEGATIVE) Urine Urobilinogen Normalmg/dL (NORMAL) Urine Leukocyte Esterase Negative (NEGATIVE) Urine RBC 0-2/hpf (0-2) Urine WBC 0-5/hpf (0-5) Urine Epithelial Cells Occasional/hpf (NONE-MOD) Urine Crystals None seen (NONE SEEN) Urine Bacteria None/hpf (NONE-FEW) Urine Hyaline Casts None/lpf (NONE) Urine Granular Casts None seen (NONE SEEN) Urine Waxy Casts None seen (NONE SEEN) Urine Red Blood Cell Casts None seen (NONE SEEN) Urine White Blood Cell Casts None seen (NONE SEEN) Urine Mucus None seen (None Seen) Urine Trichomonas None seen (NONE SEEN) Urine Yeast None (NONE SEEN) Urine Culture Reflexed Not indicated Hold Urine Received (Received) White Blood Count 8.7th/mm3 (3.8-10.1) Red Blood Count 4.48mil/mm3 (3.90-5.20) Hemoglobin 13.4g/dL (12.0-15.6) Hematocrit 41.9% (35.0-46.0) Mean Corpuscular Volume 93.5fL (81-100) Mean Corpuscular Hemoglobin 29.9pg (27.0-35.0) Mean Corpuscular Hemoglobin Concent 32.0% (32.0-37.0) Red Cell Distribution Width 15.1% (12.3-15.4) Platelet Count 153bil/L (150-400) Erythrocyte Sedimentation Rate 6mm/hr (0-40) Sodium Level 141mEq/L (134-144) Potassium Level 4.4mEq/L (3.5-5.2) Chloride Level 100mEq/L (97-108) Carbon Dioxide Level 27mmol/L (18-29) Blood Urea Nitrogen 19mg/dL (8-27) Creatinine 0.90mg/dL (0.57-1.00) Estimat Glomerular Filtration Rate 90mL/min (>59) Glucose Level 107mg/dL (60-99) Calcium Level 8.7mg/dL (8.5-10.1) Phosphorus Level 4.9mg/dL (2.5-4.9) Magnesium Level 1.8mg/dL (1.6-2.6) Procalcitonin 0.03ng/mL (0.00-0.08) Thyroid Stimulating Hormone (TSH) 2.580uIU/mL (0.450-4.500) Free Thyroxine 1.02ng/dL (0.82-1.77) Troponin T < 0.010ug/L (0.0-0.011) Test 08/16/16 16:55 D-Dimer 0.68mg/L FEU (<0.50) Discharge Medications Discharge Medications Omeprazole (Omeprazole) 10 Mg Capsule.dr 10 MG PO BID Prescribed by: SHERICE FLOREZ MD Oxybutynin Chloride (Oxybutynin Chloride) 5 Mg Tablet 5 MG PO BID (Reported) Trazodone (Trazodone) 100 Mg Tablet 50-100 MG PO HS (Reported) As needed Beclomethasone Dipropionate (Qvar) 8.7 Gm Aer.w.adap 1-2 PUFFS IH BID PRN PRN For Shortness of Breath (Reported) Followup Plan Disposition: home Discharge Diet: Low fat, Low Sodium Discharge Activity: Limited until seen by PCP Patient Instructions You were hospitalized to due to chest pain. Workup is negative for heart attack. Pain most likely due to acid reflux. Please take omeprazole as prescribed. Please follow-up with PCP in 1 week. Follow-up Provider: Jose Maria Claros MD Follow-up with PCP in: 1 week copies to: Jose Maria Claros MD, Melaku MD Aug 16, 2016 20:07
== END 2016-08-16 18:04 | disposition home or self-care (01) ==
LOC: EDBD 19:47 → SED 19:47 → MPC 22:44
PROVIDERS: ADMIT Hospitalist; ATTEND Hospitalist
DX: R07.9 Chest pain, unspecified (principal); G47.00 Insomnia, unspecified; N32.89 Other specified disorders of bladder; I48.91 Unspecified atrial fibrillation; R00.1 Bradycardia, unspecified; Z85.72 Personal history of non-Hodgkin lymphomas; K22.70 Barrett's esophagus without dysplasia; F41.8 Other specified anxiety disorders; I10 Essential (primary) hypertension; F17.210 Nicotine dependence, cigarettes, uncomplicated
CPT/HCPCS: 36415; 71010; 78452; 80048; 80053; 81000; 83690; 83735; 83880; 84100; 84145; 84439; 84443; 84484; 85025; 85027; 85378; 85651; 93005; 93017; 96374; 96375; 96376; 99285; A9502; C8929; G0378; J0280; J1170; J1644; J2405; J2785; J7030